=== PATIENT | female | born 1965 | race Caucasian/White ===

== ENCOUNTER 2016-10-09 20:15 | Emergency (ER) | payer OTHER ==
[2016-10-09 20:38] LABS: BASOPHIL# 0.1 X 10^3uL (0.0-0.1); BASOPHILS 1.3 % (0.0-2.0); EOSINOPHILS 5.7 % (0.0-6.0); EOSINOPHILS# 0.4 X 10^3uL (0.0-0.4); HEMATOCRIT 41.3 % (36.0-48.0); HEMOGLOBIN 14.3 g/dL (12.0-16.0); MEAN CELL VOLUME 88.6 fL (80.0-100.0); MEAN CORPUS. HGB CONCENTRATION 34.6 g/dL (32.0-36.0); MEAN CORPUSCULAR HEMOGLOBIN 30.6 pg (29.0-35.0); MEAN PLATELET VOLUME 7.8 fL (7.4-10.4); MONOCYTES 8.9 % (2.0-10.0); MONOCYTES# 0.7 X 10^3uL (0.2-1.0); NEUTROPHILS 43.1 % (54.0-75.0); NEUTROPHILS# 3.2 X 10^3uL (2.6-6.7); PLATELET COUNT 257 X 10^3uL (130-440); RED BLOOD COUNT 4.67 X 10^6uL (4.20-6.10); RED CELL DISTRIBUTION WIDTH 11.9 % (11.5-14.5); WHITE BLOOD COUNT 7.4 X 10^3uL (3.9-10.7)
[2016-10-09 20:52] LABS: BLOOD UREA NITROGEN 15 mg/dL (7-17); CALCIUM 9.5 mg/dL (8.4-10.2); CHLORIDE 108 mmol/L (98-107); CREATININE 1.3 mg/dL (0.5-1.0); EST GLOMERULAR FILTRATION RATE 46 mL/min; GLUCOSE 82 mg/dL (70-100); MAGNESIUM 2.2 mg/dL (1.6-2.3); POTASSIUM 3.8 mmol/L (3.5-5.1); SODIUM 146 mmol/L (137-145)
[2016-10-09 21:12] LABS: TROPONIN I < 0.012 ng/mL (0.00-0.034)
[2016-10-09] MEDS ORDERED: CYCLOBENZAPRINE HCL 10 MG TABLET PO ONE (21:25)
--- NOTE | 2016-10-09 21:26 | ER PHYSICIAN DOCUMENTATION ---
Physician Documentation [facility] Name:Stefanie Desir Age:51 yrs Sex:Female :1965 Arrival Date:10/09/2016 Time:20:15 BedTrauma-C Private MD:Physician, No ED Kee Kramer Disposition: 10/09/16 21:17 Discharged to Home/Self Care. Impression: Chest Wall Pain, Muscle Spasm. - Condition is Good. - Discharge Instructions: CHEST WALL STRAIN, MUSCLE SPASM. - Prescriptions for Cyclobenzaprine 10 mg Oral Tablet - take 1 tablet by ORAL route every 8 hours; 30 tablet. - Medical Reconciliation form form. - Follow up: Private Physician; When: 7 - 10 days; Reason: Recheck today's complaints, Continuance of care. - Problem is new. - Symptoms have improved. - Notes: Ice Pack.... Flexeril 10mg by mouth every 8 hours for 2 - 3 days.... Drink plenty of fluids..... Ibuprofen 600mg by mouth every 6 hours with food for 2 - 3 days.... Historical: - Allergies: SULFA (SULFONAMIDES); TETRACYCLINES; - Home Meds: 1. None - PMHx: Hypertension; RHEUMATIC FEVER; - PSHx: Tonsillectomy; - Tetanus: < 10 years. - Ebola Screening: : Patient negative for fever greater than or equal to 101.5 degrees Fahrenheit, and additional compatible Ebola Virus Disease symptoms. - Immunization history: Flu Vaccine < 1 year. - Social history: Smoking status: Patient states was never smoker of tobacco. Vital Signs: 10/09 20:20 BP 154 / 95; Pulse 89; Resp 16; Temp 98.3(O); Pulse Ox 95% on R/A; Weight 68.95 kg; rh Height 5 ft. 6 in. (167.64 cm); Pain 6/10; 20:47 BP 128 / 91; Pulse 82; Resp 16; Pulse Ox 95% on R/A; rh 21:18 BP 131 / 94; Pulse 80; Resp 16; Pulse Ox 95% on R/A; Pain 2/10; rh 20:20 Body Mass Index 24.53 (68.95 kg, 167.64 cm) rh MDM: 21:00 Patient medically screened. cd 21:36 EKG attached lp 10/09 21:13 Order name: BASIC METABOLIC PANEL; Complete Time: 21:15 EDMS 10/09 21:13 Order name: MAGNESIUM; Complete Time: 21:15 EDMA 10/09 21:13 Order name: TROPONIN I; Complete Time: 21:15 EDMA 10/09 21:14 Order name: CBC AUTO DIF, MDIF/RMOR IF IND; Complete Time: 21:15 EDMA 10/09 20:37 Order name: CHEST; SINGLE VIEW [id number] EDMA 10/10 10:42 Order name: CHEST; SINGLE VIEW [id number] EDMA 10/09 20:24 Order name: 12-lead EKG; Complete Time: 20:24 10/09 20:24 Order name: Iv Saline Lock; Complete Time: 20:24 10/09 20:24 Order name: Place Patient On Monitor; Complete Time: 20:24 10/09 20:24 Order name: Pulse Ox Continuous; Complete Time: 20:24 rh Dispensed Medications: 21:13 Drug: Cyclobenzaprine 10 mg; Route: PO; 21:18 Follow up: Response: No adverse reaction Signatures: Liliana Morgan RN RN lp Kee Chen MD MD cd Hofsess, Rachel
--- NOTE | 2016-10-09 21:26 | ER NURSING DOCUMENTATION ---
Nurse's Notes [facility] Name:Stefanie Desir Age:51 yrs Sex:Female :1965 Arrival Date:10/09/2016 Time:20:15 BedTrauma-C Private MD:Physician, No Diagnosis:Chest Wall Pain;Muscle Spasm Presentation: 10/09 20:18 Acuity: DAE 2 rh 20:29 Presenting complaint: Patient states: Pt states that for 2 days she has had left rh scapular pain. She also c/o diaphoresis and fatigue along with some mild SOB. Transition of care: Home. 20:29 Method Of Arrival: Private Vehicle rh Triage Assessment: 20:31 General: Appears in no apparent distress, Behavior is cooperative. Pain: Complains of rh pain in left scapular area. EENT: Oral mucosa is moist. Neuro: Level of Consciousness is awake, alert, obeys commands, Oriented to person, place, time, event. Cardiovascular: Capillary refill < 3 seconds Reports Diaphoresis fatigue, shortness of breath Denies lightheadedness, Chest pain is denied. Respiratory: Airway is patent Respiratory effort is even, unlabored, Respiratory pattern is regular, symmetrical, Breath sounds are clear bilaterally. Reports shortness of breath. GI: Abdomen is non- distended Abd is soft and non tender X 4 quads. Denies diarrhea, nausea, vomiting. : Denies burning with urination. Derm: Skin is intact, is healthy with good turgor, Skin is pink, warm & dry. Musculoskeletal: Circulation, motion, and sensation intact. Historical: - Allergies: SULFA (SULFONAMIDES); TETRACYCLINES; - Home Meds: 1. None - PMHx: Hypertension; RHEUMATIC FEVER; - PSHx: Tonsillectomy; - Tetanus: < 10 years. - Ebola Screening: : Patient negative for fever greater than or equal to 101.5 degrees Fahrenheit, and additional compatible Ebola Virus Disease symptoms. - Immunization history: Flu Vaccine < 1 year. - Social history: Smoking status: Patient states was never smoker of tobacco. Screenin:33 Infectious Disease Risk None. Abuse screen: Denies threats or abuse. Denies injuries rh from another. Nutritional screening: No deficits noted. Assessment: 20:33 See Triage Assessment done by same RN. rh Vital Signs: 20:20 BP 154 / 95; Pulse 89; Resp 16; Temp 98.3(O); Pulse Ox 95% on R/A; Weight 68.95 kg; rh Height 5 ft. 6 in. (167.64 cm); Pain 6/10; 20:47 BP 128 / 91; Pulse 82; Resp 16; Pulse Ox 95% on R/A; rh 21:18 BP 131 / 94; Pulse 80; Resp 16; Pulse Ox 95% on R/A; Pain 2/10; rh 20:20 Body Mass Index 24.53 (68.95 kg, 167.64 cm) rh ED Course: 20:15 Notified ED Physician of patient's arrival and chief complaint. Dr. Chen notified. rh 20:16 Patient arrived in ED. em2 20:16 Physician, Wendy is Private Physician. em2 20:17 bus driver/monitor on. Pulse ox on. NIBP on. rh 20:18 Renetta Carter is Primary Nurse. rh 20:18 Triage completed. rh 20:18 Inserted peripheral IV: 20 gauge in left forearm and blood collected. rh 20:22 EKG done. (by ED staff). em1 20:28 Port Xray Completed. guillermina 20:33 Valuables Remains with patient Patient has correct armband on for positive rh identification. Placed in gown. Bed in low position. Call light in reach. Side rails up X 1. 20:37 CHEST; SINGLE VIEW 40010 In Process Unspecified. EDMS 21:00 Kee Chen MD is Attending Physician. cd 21:18 Discontinued IV lock bleeding controlled. em1 21:36 EKG attached lp Administered Medications: 21:13 Drug: Cyclobenzaprine 10 mg; Route: PO; rh 21:18 Follow up: Response: No adverse reaction rh Outcome: 21:17 Discharge ordered by . cd 21:18 Discharged to home ambulatory, with significant other. rh 21:18 Condition: improved 21:18 Discharge Assessment: Patient awake, alert and oriented x 3. No cognitive and/or functional deficits noted. Patient verbalized understanding of disposition instructions. 21:18 Discharge instructions given to patient, significant other, Instructed on discharge instructions, follow up and referral plans. medication usage, Demonstrated understanding of instructions, medications, Prescriptions given X 1. 21:18 IV D/Harjeet 21:25 Patient left the ED. 10/10 17:54 Discharge F/U Call: Unable to reach: no answer ke Signatures: Dispatcher [employer] Liliana Bernal RN RN lp Daley, Chris, MD MD cd Abbott, Olga sarmiento [facility], [facility] em1 [facility], [facility] em2 Renetta Carter Kerry, RN RN ke
--- NOTE | 2016-10-10 07:29 | RADIOLOGY REPORT ---
A limited single portable view of the chest, without prior films for comparison , demonstrates the heart, vessels and lungs to be unremarkable. IMPRESSION: Unremarkable limited single portable view of the chest. MTDD
== END 2016-10-09 21:26 | disposition home or self-care (01) ==
LOC: ER 20:15
DX: R07.81 Pleurodynia (principal); M62.830 Muscle spasm of back
CPT/HCPCS: 71010; 80048; 83735; 84484; 85025; 93005; 99284